=== PATIENT | male | born 2000 | race Caucasian/White ===

== ENCOUNTER 2020-05-06 09:14 | Emergency (ER) | payer OTHER ==
[2020-05-06] MEDS ORDERED: EPINEPHrine 1 MG/ML SDV SUBCUT ONE (09:21)
[2020-05-06] MEDS ORDERED: methylPREDNISolone Sodium Succinate 125 MG/2 ML SDV IVPUSH ONE (09:22)
[2020-05-06] MEDS ORDERED: Sodium Chloride 0.9% 1,000 ML IV SCH ×2 (09:30→10:30)
[2020-05-06] MEDS ORDERED: Ibuprofen 600 MG Tab PO ONE (09:39)
--- NOTE | 2020-05-06 09:59 | EDM.PDOC ---
ED HPI GENERAL MEDICAL PROBLEM - General Chief Complaint: Allergic Reaction Stated Complaint: ALLERGIC REACTION Time Seen by Provider: 05/06/20 09:55 Source of Information: Reports: Patient History Limitations: Reports: No Limitations - History of Present Illness INITIAL COMMENTS - FREE TEXT/NARRATIVE: pt arrived feeling tight in the throat and mildly sob. He is Covid neg and [place] positive. He is on amoxicillin. He does have a temp. Onset: Today, Gradual, Other (pt started to breakouit with the rash last nite. ) Duration: Hour(s): Location: Reports: Generalized, Other (pt has a total body rash. ) Associated Symptoms: Reports: Fever/Chills, Rash, Other (known ) - Related Data Allergies Allergy/AdvReac Type Severity Reaction Status Date / Time amoxicillin Allergy Rash Verified 05/06/20 10:04 Home Meds: Home Meds Cetirizine [ZyrTEC] 10 mg PO DAILY 05/06/20 [History] Past Medical History Respiratory History: Reports: Asthma Neurological History: Reports: Concussion - Past Surgical History Head Surgeries/Procedures: Reports: None Respiratory Surgical History: Reports: None Neurological Surgical History: Reports: None Dermatological Surgical History: Reports: None Social & Family History - Tobacco Use Tobacco Use Status *Q: Never Tobacco User Second Hand Smoke Exposure: No - Caffeine Use Caffeine Use: Reports: Coffee, Soda, Tea - Recreational Drug Use Recreational Drug Use: No ED ROS ALLERGIC REACTION - Review of Systems Review Of Systems: See Below Constitutional: Reports: Fever, Chills, Malaise, Other ( totalbody rash. ) HEENT: Reports: Throat Pain, Other (pt states his throat feels tight. ) Respiratory: Reports: Shortness of Breath, Other ( this started after the rash broke out. ) Cardiovascular: Reports: No Symptoms Endocrine: Reports: No Symptoms GI/Abdominal: Reports: No Symptoms : Reports: No Symptoms Musculoskeletal: Reports: No Symptoms Skin: Reports: Rash, Urticaria Neurological: Reports: No Symptoms ED EXAM GENERAL NO PERIP PULSE - Physical Exam Exam: See Below Text/Narrative:: pt arrived with a lower bp in the mid 80s systolic and a total body rash with a tight throat. . He stes this started in the nite but was alot worse this am. He is on amoxicillin. He had a tooth extracted on Wednesday that had a abcess. He was placed on the amoxicillin for that. He was seen in the ER in [place] on Sat and he had a very through workup. He was found to have mono with swelling of his spleen and liver. He had a sore throat also. He is still running a fever. r Exam Limited By: No Limitations General Appearance: Alert, Anxious, Moderate Distress, Other (pt has total body hives. ) Ears: Normal TMs Nose: Normal Inspection, Other ( no sinus tenderness) Throat/Mouth: Normal Inspection Head: Atraumatic Neck: Normal Inspection Respiratory/Chest: Decreased Breath Sounds, Wheezing, Other (pt felt tight in the throat and sob. His bp was in the mid 80s. ) Cardiovascular: Regular Rate, Rhythm, Tachycardia GI/Abdominal: Soft, Non-Tender (Male) Exam: Deferred Rectal (Males) Exam: Deferred Back Exam: Normal Inspection Extremities: Normal Inspection Neurological: Alert, Oriented, Normal Cognition Psychiatric: Anxious Skin Exam: Rash, Other (looked allergic) Course - Vital Signs Last Recorded V/S: Last Vital Signs Temp 38.3 C H 05/06/20 09:48 Pulse 98 05/06/20 10:41 Resp 17 05/06/20 10:41 BP 93/49 L 05/06/20 10:41 Pulse Ox 96 05/06/20 10:41 - Orders/Labs/Meds Orders: Active Orders 24 hr Category Date Time Status CULTURE BLOOD [BC] Urgent Lab 05/06/20 10:50 Received CULTURE BLOOD [] Urgent Lab 05/06/20 10:55 Received CULTURE STREP A CONFIRMATION [] Stat Lab 05/06/20 09:25 Results STREP SCRN A RAPID W CULT CONF [] Stat Lab 05/06/20 09:25 Results Sodium Chloride 0.9% [Normal Saline] 1,000 ml Med 05/06/20 09:30 Active IV ASDIRECTED Sodium Chloride 0.9% [Normal Saline] 1,000 ml Med 05/06/20 10:30 Active IV ASDIRECTED Blood Culture x2 Reflex Set [OM.PC] Urgent Oth 05/06/20 10:24 Ordered Medication Orders Sodium Chloride (Normal Saline) 1,000 mls @ 999 mls/hr IV ASDIRECTED SARA Last Admin: 05/06/20 09:38 Dose: 999 mls/hr Documented by: PATO Sodium Chloride (Normal Saline) 1,000 mls @ 999 mls/hr IV ASDIRECTED SARA Last Admin: 05/06/20 10:31 Dose: 999 mls/hr Documented by: PATO Labs: Laboratory Tests 05/06/20 05/06/20 05/06/20 Range/Units 09:21 10:23 10:31 WBC 5.2 (4.5-11.0) K/uL RBC 4.55 (4.30-5.90) M/uL Hgb 13.5 (12.0-15.0) g/dL Hct 39.1 L (40.0-54.0) % MCV 86 (80-98) fL MCH 30 (27-31) pg MCHC 35 (32-36) % Plt Count 96 L (150-400) K/uL Neut % (Auto) 33 L (36-66) % Lymph % (Auto) 47 H (24-44) % [place] % (Auto) 9 H (2-6) % Eos % (Auto) 5 H (2-4) % Baso % (Auto) 5 H (0-1) % Sodium 134 L (140-148) mmol/L Potassium 3.7 (3.6-5.2) mmol/L Chloride 100 (100-108) mmol/L Carbon Dioxide 24 (21-32) mmol/L Anion Gap 13.7 (5.0-14.0) mmol/L BUN 9 (7-18) mg/dL Creatinine 1.1 (0.8-1.3) mg/dL Est Cr Clr Drug Dosing 93.55 mL/min Estimated GFR (MDRD) > 60 (>60) Glucose 138 H (74-106) mg/dL Lactic Acid 1.6 (0.4-2.0) mmol/L Calcium 7.9 L (8.5-10.1) mg/dL Total Bilirubin 0.6 (0.2-1.0) mg/dL AST 85 H (15-37) U/L ALT 101 H (12-78) U/L Alkaline Phosphatase 88 (46-116) U/L Total Protein 6.0 L (6.4-8.2) g/dL Albumin 2.9 L (3.4-5.0) g/dL Globulin 3.1 (2.3-3.5) g/dL Albumin/Globulin Ratio 0.9 L (1.2-2.2) Meds: Medications Generic Name Dose Route Start Last Admin Trade Name Freq PRN Reason Stop Dose Admin Sodium Chloride 1,000 mls @ 999 mls/hr 05/06/20 09:30 05/06/20 09:38 Normal Saline IV 999 mls/hr ASDIRECTED SARA Administration Sodium Chloride 1,000 mls @ 999 mls/hr 05/06/20 10:30 05/06/20 10:31 Normal Saline IV 999 mls/hr ASDIRECTED SARA Administration Discontinued Medications Generic Name Dose Route Start Last Admin Trade Name Freq PRN Reason Stop Dose Admin Epinephrine HCl 0.2 mg 05/06/20 09:21 05/06/20 09:42 Adrenalin SUBCUT 05/06/20 09:22 0.2 mg ONETIME ONE Administration Ibuprofen 600 mg 05/06/20 09:39 05/06/20 09:48 Motrin PO 05/06/20 09:40 600 mg ONETIME ONE Administration Methylprednisolone Sodium Succinate 125 mg 05/06/20 09:22 05/06/20 09:40 Solu-Medrol IVPUSH 05/06/20 09:23 125 mg ONETIME ONE Administration - Re-Assessments/Exams Free Text/Narrative Re-Assessment/Exam: 05/06/20 11:31 iv fluids x 2 liters were given to the pt. Pt had taken benadryl 50 at home, he was given solumedrol 125 iv and epi .2 subq. He improved significantly. His bp is now 117/ 80. He still has the rash but it is not as swollen and red. He sounds better in his chest. Departure - Departure Time of Disposition: 11:33 Disposition: Home, Self-Care 01 Condition: Fair Clinical Impression: Infectious mononucleosis, Elevated liver enzymes, Allergic reaction, History of abscessed tooth - Discharge Information Referrals: PCP,None [Primary Care Provider] - Forms: ED Department Discharge Care Plan Goals: blood cultures are pending. Use tyleno and motrin to control the temp. benadry 50 mg bid, predisone 20 mg for 2 days then 10 mg for 2 days, zithromax 500mg starting tomorrow and then 250 mg daily for 5 days, rest, push alot of fluids. appt at the [facility] Wednesday. Sepsis Event Note (ED) - Evaluation Sepsis Screening Result: Possible Sepsis Risk - Focused Exam Vital Signs: Vital Signs Temp Temp Pulse Resp BP Pulse Ox 05/06/20 10:41 98 17 93/49 L 96 05/06/20 10:22 105 H 16 86/48 L 95 05/06/20 09:48 38.3 C H 05/06/20 09:31 38.3 C H 116 H 21 H 102/60 95 05/06/20 09:25 38.3 C H 116 H 21 H 102/60 95 - My Orders Last 24 Hours: My Active Orders 05/06/20 09:25 CULTURE STREP A CONFIRMATION [RM] Stat STREP SCRN A RAPID W CULT CONF [RM] Stat 05/06/20 09:30 Sodium Chloride 0.9% [Normal Saline] 1,000 ml IV ASDIRECTED 05/06/20 10:24 Blood Culture x2 Reflex Set [OM.PC] Urgent 05/06/20 10:30 Sodium Chloride 0.9% [Normal Saline] 1,000 ml IV ASDIRECTED 05/06/20 10:50 CULTURE BLOOD [BC] Urgent 05/06/20 10:55 CULTURE BLOOD [BC] Urgent - Assessment/Plan Last 24 Hours: My Active Orders 05/06/20 09:25 CULTURE STREP A CONFIRMATION [RM] Stat STREP SCRN A RAPID W CULT CONF [RM] Stat 05/06/20 09:30 Sodium Chloride 0.9% [Normal Saline] 1,000 ml IV ASDIRECTED 05/06/20 10:24 Blood Culture x2 Reflex Set [OM.PC] Urgent 05/06/20 10:30 Sodium Chloride 0.9% [Normal Saline] 1,000 ml IV ASDIRECTED 05/06/20 10:50 CULTURE BLOOD [BC] Urgent 05/06/20 10:55 CULTURE BLOOD [BC] Urgent
--- NOTE | 2020-05-06 11:10 | CR ---
Sinus Less 3V CLINICAL HISTORY: Air-fluid level in sphenoid on previous study Comparison: None available FINDINGS: The paranasal sinuses are clear. The visualized airway is patent. IMPRESSION: Negative
== END 2020-05-06 12:02 | disposition home or self-care (01) ==
LOC: JP.ED 09:14
DX: B27.90 Infectious mononucleosis, unspecified without complication (principal); R74.8 Abnormal levels of other serum enzymes; T78.40XA Allergy, unspecified, initial encounter; K04.7 Periapical abscess without sinus; J45.909 Unspecified asthma, uncomplicated; Z88.1 Allergy status to other antibiotic agents
CPT/HCPCS: 36415; 70210; 80053; 83605; 85025; 87040; 87081; 87880; 96372; 96374; 99285; A9270; J0171; J2930; J7030